=== PATIENT | female | born 1940 | race Caucasian/White ===

== ENCOUNTER 2022-03-29 07:30 | Outpatient (RCR) | payer MEDICARE, BC, SELFPAY | END 2022-06-29 15:39 | disposition home or self-care (01) | PROVIDERS: PCP Family Medicine; Visit Provider Orthopaedic Surgery Sports Medicine | DX: M25.561 Pain in right knee (principal); Z51.89 Encounter for other specified aftercare | CPT/HCPCS: 97110; 97140 ==

== ENCOUNTER 2022-04-19 14:32 | Outpatient (CLI) | payer MEDICARE, BC, SELFPAY | END 2022-04-19 14:33 | disposition home or self-care (01) | PROVIDERS: PCP Family Medicine; Visit Provider Family Medicine | DX: M17.12 Unilateral primary osteoarthritis, left knee (principal); M25.562 Pain in left knee | CPT/HCPCS: 64454 ==

== ENCOUNTER 2022-05-03 12:21 | Outpatient (CLI) | payer MEDICARE, BC, SELFPAY | END 2022-05-03 12:22 | disposition home or self-care (01) | PROVIDERS: PCP Family Medicine; Visit Provider Family Medicine | DX: M17.12 Unilateral primary osteoarthritis, left knee (principal); M25.562 Pain in left knee; G89.29 Other chronic pain | CPT/HCPCS: 64624; J2250; J3010 ==

== ENCOUNTER 2022-05-24 15:32 | Outpatient (CLI) | payer MEDICARE, BC, SELFPAY | END 2022-05-24 15:33 | disposition home or self-care (01) | LOC: AMB 06-22 14:42 | PROVIDERS: PCP Family Medicine; Visit Provider Family Medicine | DX: R00.1 Bradycardia, unspecified (principal); R03.0 Elevated blood-pressure reading, without diagnosis of hypertension | CPT/HCPCS: A0425; A0427 ==

== ENCOUNTER 2022-09-16 11:45 | Outpatient (RCR) | payer MEDICARE, BC, SELFPAY | END 2022-10-20 14:51 | disposition home or self-care (01) | PROVIDERS: PCP Family Medicine; Visit Provider Physician Assistant | DX: M54.31 Sciatica, right side (principal); Z51.89 Encounter for other specified aftercare | CPT/HCPCS: 97110; 97140; 97161 ==

== ENCOUNTER 2023-05-22 07:45 | Outpatient (RCR) | payer MEDICARE, BC, SELFPAY ==
--- NOTE | 2023-03-17 17:15 | PT.OPEX ---
[facility] [place] [facility] Eval PT [facility] Outpatient Eval Start: 03/17/23 10:31 Freq: Status: Active Protocol: Document 03/17/23 10:31 DORINA (Rec: 03/17/23 10:33 DORINA [id number]) E-signed By Loreto Pacheco DPT Physical Therapy Outpatient Evaluation Insurance Information Recert Due Date 06/15/23 Insurance Name Medicare B Medical Diagnosis bilateral knee pain, OA Treating Diagnosis bilateral knee pain, bilateral knee stiffness, core/hip/glut /LE weakness, limping/antalgic gait, limited tolerance for extended standing/walking/ stairs Subjective Subjective Patient reports chronic bilateral knee pain for years. States she's had multiple cortisone injections, gel injections, and ablation procedure to L knee. She didn 't notice much improvement after the L knee ablation procedure last year - having ongoing pain. States she does not want surgery at this time . Referred to PT for some strengthening. States that stairs are difficult, up>down with step to pattern and use of railing. Also increased pain and difficulty with kneeling or getting up from kneeling position. Pain with stairs/kneeling up to 8/10. Pain range 2-8/10. States she is typically in the 5/10 pain range, but states she is comfortable currently in sitting. She is using advil/ ibuprofen as needed, maybe a couple of times a week. Occasionally using tom valencia. She has a stationary bike at home, uses 2-3x/week for about 5 min. Date of Last Physician Visit 02/17/23 Current Work Status Retired Precautions Treatment Precautions/Contraindications Pacemaker Assessment Assessment/Impression Patient is an 82 year old female with bilateral knee pain, bilateral knee stiffness , core/hip/glut/LE weakness, limping/antalgic gait, limited tolerance for extended standing/walking/stairs. Pain range 2-8/10. Minimal pain at rest, sitting. Increased pain with standing/walking/ stairs/kneeling. Patient with L knee ROM 0-5-130 degrees, R knee ROM 0-2-130 degrees. She is lacking full ext bilaterally with hamstring and calf tightness bilaterally. Patient with general weakness core/hip/glut/LEs with hx of chronic bilateral knee pain. Gait is limping/antalgic. Stair negotiation with step to pattern up/down. Patient would benefit from skilled PT for pain/sx management, core/ hip/glut/LE strengthening, posture/body mechanics training, gait/proprioception training, and establishment of HEP. Plan of Care Rehabilitation Potential Good Physical Therapy Goals 1. Decrease bilateral knee pain to less than/equal to 3/ 10 with daily/work activities and with the progression of PT activities over the next 6-8 weeks. 2. Improve bilateral knee ext over the next 6-8 weeks so patient is able to get full extension with R/L knee to improve gait mechanics, standing posture, and tolerance for daily activities transfers/standing/walking. 3. Improve core/hip/glut/LEs strength over the next 10-12 weeks for decreased stress to bilateral knee joints and decreased bilateral knee pain. 4. Improve gait/balance/ proprioception over the next 10-12 weeks for improved stability with static/dynamic activities, improved mechanics with daily activities, decreased stress to bilateral knees joint, and decreased bilateral knee pain. 5. Patient will be I with HEP within 12 weeks for progression toward above goals, ongoing self management of pain/sx, ongoing self improvements in core/hip/glut/LE strength, and for return to PLF including daily activities without flare up of pain. Coordination/Communication With Referral Source Treatment Plan/Direct Interventions Manual Therapy,Therapeutic Exercises Frequency/Duration 1x/week Patient Will Be Discharged From Therapy Completion of LTG(s),Skills Plateau,Independent w/HEP, Independently Progressing Evaluation Billing Untimed Code Treatment Minutes 24 Complexity Moderate Certification Information Initial Certification Date 03/17/23 Ending Certification Date 06/15/23 Provider Signature Shows Agreement With POC & Medical Necessity Physician Signature & Date Requested Please Sign/Date Here Physician Comment/Change : Physician NPI Number #
== END 2023-08-21 15:06 | disposition home or self-care (01) ==
PROVIDERS: PCP Family Medicine; Visit Provider Orthopaedic Surgery Sports Medicine
DX: M17.12 Unilateral primary osteoarthritis, left knee (principal); M17.11 Unilateral primary osteoarthritis, right knee; Z51.89 Encounter for other specified aftercare
CPT/HCPCS: 97110; 97162

== ENCOUNTER 2025-03-04 12:30 | Outpatient (RCR) | payer MEDICARE, BC, SELFPAY | END 2025-06-30 11:25 | disposition home or self-care (01) | PROVIDERS: PCP Student in an Organized Health Care Education/Training Program; Visit Provider Family Medicine | DX: M54.16 Radiculopathy, lumbar region (principal); Z51.89 Encounter for other specified aftercare | CPT/HCPCS: 97110; 97140; 97162 ==